=== PATIENT | female | born 1980 | race African-American/Black ===

== ENCOUNTER → 2018-08-20 | Outpatient (CLI) | payer OTHER | LOC: COL.RAD 12:13 | DX: M51.27 Other intervertebral disc displacement, lumbosacral region (principal); M48.061 Spinal stenosis, lumbar region without neurogenic claudication; W19.XXXA Unspecified fall, initial encounter ==

== ENCOUNTER → 2018-10-03 | Outpatient (CLI) | payer OTHER | LOC: COL.RAD 09:45 | DX: S83.206A Unspecified tear of unspecified meniscus, current injury, right knee, initial encounter (principal) ==

== ENCOUNTER → 2022-02-16 | Outpatient (CLI) | payer BC | LOC: MC.RAD 10:27 | DX: Z12.31 Encounter for screening mammogram for malignant neoplasm of breast (principal) ==